=== PATIENT | female | born 1955 | race Caucasian/White ===

== ENCOUNTER → 2016-12-15 | Outpatient (CLI) | payer OTHER ==
[~2016-12-15] MED LIST: ADVIN10/60 INH; AGG PO; AMT24 PO; BSP/5 PO; BUPR-102 PO; CRG125 PO; FOLI1TAB7 PO; HMLI SC; HYDR-4079 PO; INSDGI SC; METF-384 PO; MOML PO; NIFE30TA PO; TIOTCAP INH; ZCR40 PO
[2016-12-15 12:40] LABS: ESTIMATED AVERAGE GLUCOSE 189 mg/dl; HA1C FLAG Normal (Normal)
== END | disposition home or self-care (01) ==
LOC: C.LABSPEC 11:27
PROVIDERS: ATTEND Internal Medicine
DX: E11.69 Type 2 diabetes mellitus with other specified complication (principal)